=== PATIENT | male | born 1990 | race Caucasian/White ===

== ENCOUNTER 2016-10-03 04:13 | Emergency (ER) | payer MEDICARE | END 2016-10-03 05:17 | disposition home or self-care (01) | LOC: ER1 04:13 | DX: K04.7 Periapical abscess without sinus (principal); K02.9 Dental caries, unspecified; F17.210 Nicotine dependence, cigarettes, uncomplicated | CPT/HCPCS: 99282 ==

== ENCOUNTER 2020-11-07 09:07 | Emergency (ER) | payer OTHER ==
[~2020-11-07 09:07] MED LIST: AMOXICILLIN500 MG PO; BENADRYL 25MG C25 MG PO; CIPRODEX OTIC7.5 ML EARLF; EPIPEN 2-P0.3 MG/0.3 INJ; IBUPROFEN600 MG PO; IBUPROFEN800 MG PO; MEDROL4 MG PO; PREDNISONE 50 M50 MG PO; PREDNISONE20 MG PO; ZOFRAN4 MG PO
[2020-11-07] MEDS ORDERED: CYCLOBENZAPRINE10 MG PO (11:46)
[2020-11-07] MEDS ORDERED: MEDROL DOSEPAK 24 MG PO (11:46)
== END 2020-11-07 11:52 | disposition home or self-care (01) ==
LOC: ER1 09:07
DX: M50.222 Other cervical disc displacement at C5-C6 level (principal); F17.210 Nicotine dependence, cigarettes, uncomplicated
CPT/HCPCS: 72125; 72131; 73030; 96372; 99284; J1885